=== PATIENT | male | born 1940 | race Caucasian/White ===

== ENCOUNTER 2018-03-21 07:25 | Emergency (ER) | payer MEDICARE ==
[2018-03-21 07:38] VITALS: BP 125/57
--- NOTE | 2018-03-21 08:02 | UC ---
Lower Extremity/Ankle HPI - HPI Summary HPI Summary: Last had episode of gout about 10 years ago, and has never been on a uric acid lowering agent. Developed pain and swelling of right first MTP about 48 hours ago, without hx of trauma. Has been using aleve 440mg daily for control of pain. Non-drinker, increased sausages in diet x 2 weeks. On clopidigrel due to history of stents (clinical trial, stents were absorbable) . - History of Current Complaint Chief Complaint: UCLowerExtremity Stated Complaint: GOUT Time Seen by Provider: 03/21/18 07:46 Hx Obtained From: Patient Onset/Duration: Sudden Onset, Lasting Days Severity Initially: Moderate Severity Currently: Moderate Pain Intensity: 6 Pain Scale Used: 0-10 Numeric Aggravating Factor(s): Standing, Ambulation Alleviating Factor(s): Rest, Elevation Able to Bear Weight: Yes - Risk Factors Gout Risk Factors: Hypertension - Allergies/Home Medications Allergies/Adverse Reactions: Allergies Allergy/AdvReac Type Severity Reaction Status Date / Time No Known Allergies Allergy Verified 03/21/18 07:35 Home Medications: Home Medications Losartan TAB* [Cozaar TAB*] 25 mg PO DAILY 03/21/18 [History Confirmed 03/21/18] Metoprolol Tartrate TAB* [Lopressor TAB*] 25 mg PO DAILY 03/21/18 [History Confirmed 03/21/18] PMH/Surg Hx/FS Hx/Imm Hx Cardiovascular History: Cardiac Disease - Surgical History Surgical History: Yes Surgery Procedure, Year, and Place: hernia. CARDIAC STENTS PLACED SEP 2014 - Family History Known Family History: Positive: Other - Father of aortic aneurysm rupture - Social History Occupation: Retired Lives: With Family Alcohol Use: None Substance Use Type: None Smoking Status (MU): Never Smoked Tobacco - Immunization History Most Recent Tetanus Shot: OVER 5 YEARS AGO Review of Systems Constitutional: Negative - no fever or signs of systemic illness. 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 Gastrointestinal: Negative Genitourinary: Negative - Has never been advised that he has CKD Motor: Negative Neurovascular: Negative Musculoskeletal: Negative Neurological: Negative Psychological: Negative Is Patient Immunocompromised?: No All Other Systems Reviewed And Are Negative: Yes Physical Exam Triage Information Reviewed: Yes Appearance: Well-Appearing, Pain Distress - moderate Vital Signs: Initial Vital Signs Temp 98 F 03/21/18 07:32 Pulse 64 03/21/18 07:32 Resp 17 03/21/18 07:32 BP 125/57 03/21/18 07:32 Pulse Ox 97 03/21/18 07:32 ENT: Positive: Normal ENT inspection Respiratory Exam: Normal Cardiovascular Exam: Normal Cardiovascular: Positive: RRR, No Murmur Musculoskeletal Exam: Other - right great toe warm, red, swollen. Tender to touch. Normal ankle and subtalar joints. Neurological Exam: Normal Psychological Exam: Normal Skin Exam: Normal Lower Extremity Course/Dx - Course Course Of Treatment: given hx of CAD and use of clopidigrel, use of prednisone advised 40mg x 5 days. Labs drawn to assess CRP and uric acid level - Differential Dx/Diagnosis Differential Diagnosis/HQI/PQRI: Arthritis, Cellulitis, Gout Provider Diagnoses: acute gout Discharge - Sign-Out/Discharge Documenting (check all that apply): Discharge/Admit/Transfer - Discharge Plan Condition: Stable Disposition: HOME Prescriptions: predniSONE TAB* [Deltasone TAB*] 2 tab PO DAILY #10 tab Patient Education Materials: Gout (ED) Referrals: Nino Monte MD [Primary Care Provider] - Additional Instructions: Take prednisone to relieve the inflammation in your toe; you should have relief within 48 hours' I suggest that you use acetaminophen (Tylenol) 1000mg up to 3 times daily for control of pain. This is a safer choice with your use of clopidigrel (anti- platelet medication which can increase your bleeding risk, especially if combined with non-steroid anti-inflammatories.). Take prednisone with food; it can increase appetite and might cause stomach upset. Labs have been drawn to assess your uric acid level; follow up with Dr. Monte regarding additional treatment. - Billing Disposition and Condition Condition: STABLE Disposition: HOME
[2018-03-21 11:16] LABS: ABS Basophils 0 10^3/ul (0-0.2); ABS Eosinophils 0.4 10^3/ul (0-0.6); ABS Lymphocytes 0.9 10^3/ul (1.0-4.8); ABS Monocytes 0.9 10^3/ul (0-0.8); ABS Neutrophils 6.9 10^3/ul (1.5-7.7); ABS Nucleated RBC 0 10^3/ul; Eosinophil % 4.4 % (0-6); Hematocrit 41 % (42-52); Hemoglobin 13.9 g/dl (14.0-18.0); Mean Corpuscular HGB Conc 34 g/dl (31-36); Mean Corpuscular Hemoglobin 31 pg (27-31); Mean Corpuscular Volume 90 fL (80-94); Mean Platelet Volume 9.1 um3 (7.4-10.4); Nucleated Red Blood Cells % 0.1; Platelet Count 203 10^3/ul (150-450); Red Cell Distribution Width 13 % (10.5-15); White Blood Count 9.1 10^3/ul (3.5-10.8)
[2018-03-21 11:35] LABS: EGFR Non-African American 106.1 (>60); Uric Acid 4.9 mg/dL (4.4-7.6)
--- NOTE | 2018-03-22 13:25 | UC ---
- Progress Note Progress Note: CBC and CMP show no acute concerns CRP elevated -- cont with prednisone and f/u with PCP. Discharge - Sign-Out/Discharge Documenting (check all that apply): Discharge/Admit/Transfer - Discharge Plan Condition: Stable Disposition: HOME Prescriptions: predniSONE TAB* [Deltasone TAB*] 2 tab PO DAILY #10 tab Patient Education Materials: Gout (ED) Referrals: Nino Monte MD [Primary Care Provider] - Additional Instructions: Take prednisone to relieve the inflammation in your toe; you should have relief within 48 hours' I suggest that you use acetaminophen (Tylenol) 1000mg up to 3 times daily for control of pain. This is a safer choice with your use of clopidigrel (anti- platelet medication which can increase your bleeding risk, especially if combined with non-steroid anti-inflammatories.). Take prednisone with food; it can increase appetite and might cause stomach upset. Labs have been drawn to assess your uric acid level; follow up with Dr. Monte regarding additional treatment. - Billing Disposition and Condition Condition: STABLE Disposition: HOME
== END 2018-03-21 08:21 | disposition home or self-care (01) ==
LOC: UCCORT 07:25
DX: M10.9 Gout, unspecified (principal); I10 Essential (primary) hypertension
CPT/HCPCS: 36415; 80048; 84550; 85025; 86141; 99212; G0463

== ENCOUNTER 2021-03-03 06:19 | Observation (INO) ==
[~2021-03-03 06:19] MED LIST: Buffered Lidocaine 1% SYRIN 1 ml INTRADERM ONE; Lactated Ringers 1000 ml BAG 1,000 ML IV SCH
[2021-03-03] MEDS ORDERED: Bupivacaine 0.5% SDV PF 30ML VIAL ONE (06:41)
[2021-03-03] MEDS ORDERED: Midazolam 2 mg/2 ml VIAL 1 mg/ml 2 ml VIAL (2 mg) ONE (06:41)
[2021-03-03] MEDS ORDERED: Dexamethasone IV 4 MG/ML VIAL 1 ml VIAL ONE (06:42)
[2021-03-03] MEDS ORDERED: Propofol 10 MG/ML 20 ML BTL ONE ×2 (06:50→07:00)
[2021-03-03] MEDS ORDERED: Lidocaine 1% MPF 5 ML VIAL ONE (06:51)
[2021-03-03] MEDS ORDERED: Phenylephrine IV 10 MG/ML 1 ml VIAL ONE (06:55)
[2021-03-03] MEDS ORDERED: fentaNYL 250 mcg/5 ml 50 MCG/ML 5 ml VIAL (250 MCG) ONE (06:58)
[2021-03-03] MEDS ORDERED: HYDROmorphone 1 MG/1 ML SYRINGE ONE (06:58)
[2021-03-03] MEDS ORDERED: Rocuronium 50 mg VIAL 10 mg/ml 5 ml VIAL (50 mg) ONE (07:00)
[2021-03-03] MEDS ORDERED: Lidocaine 2% PF 5 ML VIAL ONE (07:01)
[2021-03-03] MEDS ORDERED: ceFAZolin 2 GM PREMIX 2 GM/50 ML BAG ONE (07:05)
[2021-03-03] MEDS ORDERED: Ropivacaine 5 MG/ML 20 ML VIAL 0.5% (100 MG) ONE (07:44)
[2021-03-03] MEDS ORDERED: ROPIVACAINE 5 MG/ML 30 ML BTL (0.5%) ONE (07:49)
[2021-03-03 08:00] LABS: INR 1.07 (0.82-1.09)
[2021-03-03] MEDS ORDERED: fentaNYL 100 mcg/2 ml 50 MCG/ML VIAL IV PRN (08:58)
[2021-03-03] MEDS ORDERED: Naloxone 0.4 mg VIAL 0.4 mg/ml 1 ml VIAL IV PRN (08:58)
[2021-03-03] MEDS ORDERED: diPHENhydraMINE IV 50 MG/ML 1 ml VIAL (BENADRYL) IV PRN ×2 (08:58→10:38)
[2021-03-03] MEDS ORDERED: HYDROmorphone 1 MG/1 ML SYRINGE IV PRN (08:58)
[2021-03-03] MEDS ORDERED: Ondansetron 4 mg VIAL 2 MG/ML 2 ml VIAL IV PRN (10:38)
[2021-03-03] MEDS ORDERED: oxyCODONE/Acetamin 5/325 mg TAB PO PRN (10:38)
[2021-03-03] MEDS ORDERED: Ondansetron ODT 4 mg TAB 4 MG TAB PO PRN (10:38)
[2021-03-03] MEDS ORDERED: Lactulose 30 ml UDC PO PRN (10:38)
[2021-03-03] MEDS ORDERED: Morphine 2 MG/ML SYRINGE IV PRN (10:38)
[2021-03-03] MEDS ORDERED: Magnesium Hydroxide LIQ 30 ML UDC PO PRN (10:38)
[2021-03-03] MEDS ORDERED: diPHENhydraMINE 25 mg TAB PO PRN (10:38)
[2021-03-03] MEDS: Lactated Ringers 1000 ml BAG 1,000 ML IV SCH ×2 (12:01→22:29)
[2021-03-03] MEDS: ceFAZolin 1 GM ADVAN 1 GM in NS 0.9% 50 ML 50 ML IVPB SCH ×2 (15:45→23:59)
[2021-03-03] MEDS: Magnesium Hydroxide LIQ 30 ML UDC PO SCH (21:42)
[2021-03-03] MEDS ORDERED: Lactated Ringers 500 ml BAG 500 ML IV ONE (22:43)
[2021-03-04 05:06] LABS: ABS Lymphocytes 0.7 10^3/ul (1.0-4.8); ABS Monocytes 1.3 10^3/ul (0-0.8); ABS Neutrophils 12.8 10^3/ul (1.5-7.7); Hematocrit 27 % (42-52); Hemoglobin 9.3 g/dL (14.0-18.0); Lymphocyte % 4.9 %; Mean Corpuscular HGB Conc 34 g/dL (31-36); Mean Corpuscular Hemoglobin 32 pg (27-31); Mean Corpuscular Volume 93 fL (80-94); Mean Platelet Volume 8.7 fL (7.4-10.4); Platelet Count 175 10^3/uL (150-450); Red Blood Count 2.95 10^6 /uL (4.18-5.48); Red Cell Distribution Width 13 % (10-15); White Blood Count 14.9 10^3/uL (3.5-10.8)
[2021-03-04 05:23] LABS: Calcium 8.6 mg/dL (8.6-10.3); EGFR African American 111.2 (>60); EGFR Non-African American 91.9 (>60); HDL Cholesterol 26.6 mg/dL; Potassium 4.4 mmol/L (3.5-5.0)
[2021-03-04 08:07] VITALS: BP 136/59
[2021-03-04] MEDS: ceFAZolin 1 GM ADVAN 1 GM in NS 0.9% 50 ML 50 ML IVPB SCH (08:18)
[2021-03-04] MEDS: Magnesium Hydroxide LIQ 30 ML UDC PO SCH (08:18)
[2021-03-04] MEDS ORDERED: Vitamin THERAPEUTIC TAB PO SCH (09:00)
[2021-03-04] MEDS ORDERED: Aspirin EC 81 mg TAB.EC (enteric coated) PO SCH (09:00)
== END 2021-03-04 11:50 | disposition home or self-care (01) ==
LOC: INTOOBSV 06:19 → AA 06:19 → SSU 11:41
PROVIDERS: ADMIT Orthopaedic Surgery Adult Reconstructive Orthopaedic Surgery; ATTEND Orthopaedic Surgery Adult Reconstructive Orthopaedic Surgery

== ENCOUNTER 2022-05-04 07:55 | Observation (INO) ==
[~2022-05-04 07:55] MED LIST changes: -Lactated Ringers 1000 ml BAG 1,000 ML IV SCH
[2022-05-04] MEDS ORDERED: ceFAZolin 2 GM in NS PREMIX 2 GM/100 ML BAG IVPB ONE (08:18)
[2022-05-04] MEDS: Lactated Ringers 1000 ml BAG 1,000 ML IV SCH ×2 (08:45→14:23)
[2022-05-04] MEDS ORDERED: Midazolam 2 mg/2 ml VIAL 1 mg/ml 2 ml VIAL (2 mg) ONE (08:52)
[2022-05-04] MEDS ORDERED: fentaNYL 100 mcg/2 ml 50 MCG/ML VIAL ONE (08:52)
[2022-05-04] MEDS ORDERED: Lidocaine 2% PF 5 ML VIAL ONE (08:58)
[2022-05-04] MEDS ORDERED: Propofol 10 mg/ml 100 ML BTL 100 ML ONE (10:22)
[2022-05-04] MEDS ORDERED: Phenylephrine IV 10 MG/ML 1 ml VIAL ONE (11:27)
[2022-05-04] MEDS ORDERED: HYDROmorphone 1 MG/1 ML SYRINGE IV PRN (11:38)
[2022-05-04] MEDS ORDERED: Naloxone 0.4 mg VIAL 0.4 mg/ml 1 ml VIAL IV PRN (11:38)
[2022-05-04] MEDS ORDERED: Ondansetron ODT 4 mg TAB 4 MG TAB PO PRN (12:23)
[2022-05-04] MEDS ORDERED: Ondansetron 4 mg VIAL 2 MG/ML 2 ml VIAL IV PRN (12:23)
[2022-05-04] MEDS ORDERED: Morphine 2 MG/ML SYRINGE IV PRN (12:23)
[2022-05-04] MEDS ORDERED: Magnesium Hydroxide LIQ 30 ML UDC PO PRN (12:23)
[2022-05-04] MEDS ORDERED: Lactulose 30 ml UDC PO PRN (12:23)
[2022-05-04] MEDS ORDERED: Ondansetron 4 mg VIAL 2 MG/ML 2 ml VIAL ONE (12:48)
[2022-05-04] MEDS ORDERED: Dexamethasone IV 4 MG/ML VIAL 1 ml VIAL ONE (12:48)
[2022-05-04] MEDS ORDERED: Lactated Ringers 1000 ml BAG 1,000 ML IV SCH (13:00)
[2022-05-04] MEDS: ceFAZolin 1 GM ADVAN 1 GM in NS 0.9% 50 ML 50 ML IVPB SCH (18:09)
[2022-05-04] MEDS: Magnesium Hydroxide LIQ 30 ML UDC PO SCH (22:10)
[2022-05-05] MEDS: ceFAZolin 1 GM ADVAN 1 GM in NS 0.9% 50 ML 50 ML IVPB SCH ×2 (04:37→11:11)
[2022-05-05 05:38] LABS: Hematocrit 33 % (42-52); Hemoglobin 11.3 g/dL (14.0-18.0); Mean Platelet Volume 8.4 fL (7.4-10.4); Platelet Count 183 10^3/uL (150-450)
[2022-05-05 06:30] LABS: Calcium 8.7 mg/dL (8.6-10.3); Potassium 4.5 mmol/L (3.5-5.0); eGFR CKD-EPI 83.6 (>60)
[2022-05-05] MEDS: Magnesium Hydroxide LIQ 30 ML UDC PO SCH (08:29)
[2022-05-05] MEDS ORDERED: Vitamin THERAPEUTIC TAB PO SCH (09:00)
[2022-05-05 11:11] VITALS: BP 127/62
== END 2022-05-05 14:05 | disposition home or self-care (01) ==
LOC: AA 07:55 → INTOOBSV 07:55 → SSU 14:15
PROVIDERS: ADMIT Orthopaedic Surgery Adult Reconstructive Orthopaedic Surgery; ATTEND Orthopaedic Surgery Adult Reconstructive Orthopaedic Surgery